=== PATIENT | female | born 1990 | race Caucasian/White ===

== ENCOUNTER 2017-09-10 07:41 | Day surgery (SDC) | payer OTHER ==
[2017-09-10] VITALS (11 sets, daily range): BP systolic 102–125; BP diastolic 44–81; PULSE 74–97; RESP 12–21; Ht 162.6 cm; Wt 78.4 kg
[~2017-09-10] VITALS: Ht 162.6 cm; Wt 78.4 kg
[~2017-09-10 07:41] MED LIST: ACET1TAB40 PO; CLINDAMYCIN 600 MG/D5W (PMX) 50 ML IVPB SCH; HYDR-3498 PO; IBUP-1542 PO; PREN-39 PO; SOD CHLORIDE 0.9% 1,000 ML IV SCH
[2017-09-10] MEDS ORDERED: MIDAZOLAM 1 MG/ML 2 ML INJ ONE (13:07)
[2017-09-10] MEDS ORDERED: FENTAnyl 50 MCG/ML VIAL ONE (13:07)
[2017-09-10] MEDS ORDERED: PROPOFOL 20 ML ONE (13:07)
[2017-09-10] MEDS ORDERED: BUPIVACAINE 0.25% (MPF) 30 ML INJ ONE (13:23)
[2017-09-10] MEDS ORDERED: ONDANSETRON 4 MG INJ ONE (13:48)
[2017-09-10] MEDS ORDERED: DEXAMETHASONE 4 MG/ML 1 ML INJ ONE (13:48)
[2017-09-10] MEDS ORDERED: KETOROLAC 30 MG INJ ONE (13:48)
[2017-09-10] MEDS ORDERED: METOCLOPRAMIDE 10 MG INJ ONE (13:48)
[2017-09-10] MEDS ORDERED: CEFAZOLIN 1 GM INJ ONE (13:48)
[2017-09-10] MEDS ORDERED: LABETALOL HCL 20MG INJ IV PRN (14:00)
[2017-09-10] MEDS ORDERED: EPHEDrine SULFATE 50 MG/5 ML SYG IV PRN (14:00)
[2017-09-10] MEDS ORDERED: FENTAnyl 50 MCG/ML VIAL IV PRN ×3 (14:00)
[2017-09-10] MEDS ORDERED: HYDROmorphONE (0.2 MG/ML) 10ML SYG IV PRN ×3 (14:00)
[2017-09-10] MEDS ORDERED: METOCLOPRAMIDE 10 MG INJ IV PRN (14:00)
[2017-09-10] MEDS ORDERED: MEPERIDINE 25 MG INJ IV PRN (14:00)
[2017-09-10] MEDS ORDERED: ONDANSETRON 4 MG INJ IV PRN (14:00)
[2017-09-10] MEDS ORDERED: DIPHENHYDRAMINE 50 MG INJ IV PRN (14:00)
--- NOTE | 2017-09-10 14:19 | OPR ---
Date/Time of Note Date/Time of Note DATE: 09/10/17 TIME: 14:16 Operative Report Procedure Date: Sep 10, 2017 Preoperative Diagnosis left breast mass x 2 Postoperative Diagnosis same Operation/Procedure Performed 1. excision of left breast mass x 2 in one mass 6 cm mass 6 cm incision 2. localized adjacent tissue transfer with the use of skin flaps 12 sq cm defect 3. 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 She requests surgical excision. Risks alternatives benefits percent were discussed the patient. Patient expressed understanding consents to the operation. Procedure Description Patient is taken to the OR and prepped and draped in usual sterile fashion. Surgical timeout was performed. IV antibiotics given. Radiographic imaging was reviewed showing a needle localization with 2 masses in the vicinity. Curvilinear incision was made in the areolar border in the upper inner quadrant in the left breast with a 15 blade. Dissection Carrs carried onto the area of concern guided by the needle localization. The 2 masses appeared juxtaposed and was excised in block in one piece. Dissection Carrs carried down to excise the 2 masses. Hemostasis established. Due to large tissue defect localized adjacent tissue transfer with these of skin flaps was performed. Multilayer closure with interrupted 3-0 Vicryl and running 4-0 Monocryl. Therapeutic contains local anesthesia was injected at the beginning and end of the case. Dry dressings were applied. Jyoti GARCIA Sep 10, 2017 14:19
[2017-09-10] MEDS ORDERED: HYDROCODONE/APAP (5/325) TAB PO ONE (14:30)
== END 2017-09-10 16:10 | disposition home or self-care (01) ==
LOC: SDS 07:41
PROVIDERS: ATTEND Surgery
DX: D24.2 Benign neoplasm of left breast (principal)
CPT/HCPCS: 19120; 88307; J0690; J1100; J1885; J2250; J2405; J2765; J3010; J7030; Z7512; Z7610

== ENCOUNTER 2017-09-30 08:22 | Emergency (ER) | payer OTHER ==
[~2017-09-30] VITALS: Wt 79.0 kg
[2017-09-30] MEDS ORDERED: ONDANSETRON (ODT) 4 MG TAB ODT STA ×2 (08:42→09:51)
[2017-09-30] MEDS ORDERED: KETOROLAC 30 MG INJ IM STA (08:44)
--- NOTE | 2017-09-30 08:56 | ERD ---
ER Documentation Chief Complaint Chief Complaint vomiting and diarrhea HPI 27-year-old female states that she developed vomiting and diarrhea is starting early this morning. She reports up to 5 episodes of nonbloody nonbilious emesis , 4 episodes of loose stools are nonbloody non-mucousy. She describes diffuse abdominal pain that is cramping going from her mid abdomen to her lower abdomen. She is being evaluated with her daughter, she states that they both ate eggs and sausage for dinner last night and then developed this pain as well as vomiting around the same time. She has not had any fevers, chills, vaginal bleeding. She denies chest pain, shortness of breath. ROS All systems reviewed and are negative except as per history of present illness. Medications Home Meds Active Scripts Dicyclomine Hcl* (Bentyl*) 10 Mg Capsule, 10 MG PO QID, #15 CAP Prov:JUAN MIGUEL LARES PA-C 09/30/17 Ondansetron (Ondansetron Odt) 4 Mg Tab.rapdis, 4 MG PO Q6H Y for NAUSEA AND/OR VOMITING, #10 TAB Prov:JUAN MIGUEL LARES PA-C 09/30/17 Allergies Allergies: Coded Allergies: Penicillins (Unverified Allergy, Unknown, RASH, ANAPHYLACTIC, 09/30/17) PMhx/Soc Medical and Surgical Hx: pt denies Medical Hx, pt denies Surgical Hx History of Surgery: No Anesthesia Reaction: No Hx Neurological Disorder: No Hx Respiratory Disorders: No Hx Cardiac Disorders: No Hx Psychiatric Problems: No Hx Miscellaneous Medical Probl: No Hx Alcohol Use: No Hx Substance Use: Yes (marijuana friday09/08/17) Hx Tobacco Use: No Physical Exam Vitals Vital Signs Date Time Temp Pulse Resp B/P Pulse Ox O2 Delivery O2 Flow Rate FiO2 09/30/17 08:24 98.9 99 18 136/91 99 Physical Exam General: Well-developed, well-nourished. The patient appears in no acute distress. HEENT: Head is normocephalic, atraumatic. No scleral icterus. Pupils are equal , round, and reactive. Oral mucous membranes are moist. No pharyngeal erythema. Neck: Supple. Nontender. Lungs: Clear to auscultation. Normal air movement. Heart: Regular rate and rhythm. S1 and S2 are normal. No murmurs, gallops, or rubs. Abdomen: Soft, diffuse abdominal tenderness including the mid abdomen., nondistended. Bowel sounds are normoactive. Negative Rodgers sign, no McBurney' s tenderness. Extremities: No clubbing or cyanosis. Normal pulses. Moving extremities x 4. No weakness. Neurologic: Alert and oriented 3. No focal deficits. Skin: Normal turgor. No rash or lesions. Results 24 hrs Laboratory Tests Test 09/30/17 08:55 Urine Color YELLOW Urine Clarity CLEAR Urine pH 8.0 Urine Specific Scurry 1.028 Urine Ketones TRACEmg/dL Urine Nitrite NEGATIVEmg/dL Urine Bilirubin NEGATIVEmg/dL Urine Urobilinogen NEGATIVEmg/dL Urine Leukocyte Esterase TRACELeu/ul Urine Microscopic RBC 3/HPF Urine Microscopic WBC 2/HPF Urine Squamous Epithelial Cells FEW/HPF Urine Bacteria FEW/HPF Urine Mucus FEW/HPF Urine Hemoglobin NEGATIVEmg/dL Urine Glucose NEGATIVEmg/dL Urine Total Protein NEGATIVEmg/dl Current Medications Medications (Trade) Dose Ordered Sig/Jacquie Route PRN Reason Start Time Stop Time Status Last Admin Dose Admin Ondansetron HCl (Zofran Odt) 4 mg ONCE STAT ODT 09/30/17 08:42 09/30/17 08:43 DC 09/30/17 08:59 Ketorolac Tromethamine (Toradol) 30 mg ONCE STAT IM 09/30/17 08:44 09/30/17 08:46 DC 09/30/17 09:01 Ondansetron HCl (Zofran Odt) 4 mg ONCE STAT ODT 09/30/17 09:51 09/30/17 09:52 DC 09/30/17 09:59 Procedures/MDM ED COURSE: Urine , negative. Patient was given Zofran 4 mg ODT with Toradol 30 mg IM. The patient's abdominal pain was reexamined. Patient was sitting comfortably with improved pain. Patient was not in any distress. She did still complain of nausea after 1 dose of Zofran and then was given additional Zofran 4 mg ODT. MEDICAL DECISION MAKIN-year-old female comes in with vomiting, diarrhea, she is being evaluated for daughter who has had vomiting since early this morning as well. The attributed to food, that they had both eaten. No history of travel related to this or fevers or chills. Suspicion for enteritis, colitis, diverticulitis, acute appendicitis, acute hepatobiliary process or pancreatitis is low. Although she describes diffuse abdominal pain, she is most tender in the mid abdomen as expected. I suspect either food poisoning or self-limiting viral process, she was treated with Zofran and Toradol with significant improvement of her symptoms. Patient will be discharged home with Irlanda Harman. Departure Diagnosis: Primary Impression: Vomiting and diarrhea Condition: Good JUAN MIGUEL LARES PA-C Sep 30, 2017 08:56
[2017-09-30 09:23] LABS: ADD UMIC YES; UR ASCORBIC ACID NEGATIVE (NEGATIVE); UR BACTERIA FEW /HPF (NONE SEEN); UR BILIRUBIN (Dip) NEGATIVE (NEGATIVE); UR BLOOD (Dip) NEGATIVE (NEGATIVE); UR CLARITY CLEAR (CLEAR); UR COLOR YELLOW (YELLOW); UR GLUCOSE (Dip) NEGATIVE (NEGATIVE); UR KETONES (Dip) TRACE mg/dL (NEGATIVE); UR LEUKOCYTE ESTERASE (Dip) TRACE Leu/ul (NEGATIVE); UR MUCUS FEW /HPF (NONE SEEN); UR NITRITE (Dip) NEGATIVE (NEGATIVE); UR RBC 3 /HPF (0-5); UR SPECIFIC GRAVITY (Dip) 1.028 (1.003-1.030); UR SQUAMOUS EPITHELIAL CELL FEW /HPF (FEW); UR TOTAL PROTEIN (Dip) NEGATIVE (NEGATIVE); UR UROBILINOGEN (Dip) NEGATIVE (NEGATIVE)
[2017-09-30] MEDS ORDERED: DICY10CA60 PO (10:33)
[2017-09-30] MEDS ORDERED: ONDA4TAB14 PO (10:33)
== END 2017-09-30 10:50 | disposition home or self-care (01) ==
LOC: FTE 08:22
DX: R11.10 Vomiting, unspecified (principal); R19.7 Diarrhea, unspecified
CPT/HCPCS: 81001; 96372; J1885; Z7502; Z7610

== ENCOUNTER 2018-03-21 01:04 | Emergency (ER) | END 2018-03-21 06:44 | disposition home or self-care (01) ==

== ENCOUNTER 2018-08-20 00:20 | Inpatient (IN) | END 2018-08-22 13:30 | disposition home or self-care (01) | DRG 807 ==